=== PATIENT | female | born 1930 | race Caucasian/White ===

== ENCOUNTER 2016-06-03 16:01 | Emergency (ER) | payer MEDICARE | END 2016-06-03 17:44 | disposition home or self-care (01) | LOC: FER 16:01 | DX: I48.2 Chronic atrial fibrillation (principal); E03.9 Hypothyroidism, unspecified; Z79.01 Long term (current) use of anticoagulants; Z79.82 Long term (current) use of aspirin; Z79.899 Other long term (current) drug therapy; Z95.0 Presence of cardiac pacemaker; Z98.61 Coronary angioplasty status | CPT/HCPCS: 71020; 93005 ==

== ENCOUNTER 2016-06-25 12:01 | Day surgery (SDCO) | payer MEDICARE ==
[2016-06-25 12:22] LABS: BASOPHIL 0.8 % (0-2); EOSINOPHIL 3.8 % (0-7); HCT 43.9 % (37.0-47.0); HGB 13.8 g/dl (12.5-16.0); LYMPHOCYTE 18.2 % (15-48); MCH 31.9 pg (25.0-31.0); MCHC 31.4 g/dL (32.0-36.0); MCV 101.6 fL (78.0-100.0); MONOCYTE 12.5 % (0-12); MPV 10.3 fL (6.0-9.5); NEUTROPHIL 64.7 % (41-80); PLT 179 K/uL (150-400); RBC 4.32 M/uL (4.20-5.40); RDW 14.9 % (11.5-14.0)
[2016-06-25 12:42] LABS: INR 2.26 (0.9-1.2); PROTHROMBIN TIME 24.3 SECONDS (11.7-14.0); PTT 37.1 SECONDS (23.2-31.4)
[2016-06-25 12:44] LABS: BILIRUBIN NEGATIVE (NEGATIVE); BLOOD NEGATIVE Ery/uL (NEGATIVE); CLARITY CLEAR (CLEAR); COLOR YELLOW (YELLOW); GLUCOSE (U) NORMAL (NORMAL); KETONE (U) NEGATIVE (NEGATIVE); LEUKOCYTES 1+ Leu/uL (NEGATIVE); NITRITE NEGATIVE (NEGATIVE); PROTEIN NEGATIVE (NEGATIVE); UROBILINOGEN 0.2 mg/dL (0.2-1.0); pH 7.5 (5.0-9.0)
[2016-06-25 12:48] LABS: BACTERIA TRACE; URINARY RBC RARE
[2016-06-25 12:50] LABS: ALBUMIN 4.1 g/dL (3.4-4.8); BILIRUBIN - TOTAL 0.9 mg/dL (0.1-1.0); CREATININE 1.8 mg/dL (0.5-1.0); GLOBULIN (CALCULATION) 3.1 g/dL (2.2-4.2); MAGNESIUM 2.61 mg/dL (1.40-2.10); POTASSIUM 4.1 mmol/L (3.5-5.1); TOTAL PROTEIN 7.2 g/dL (6.4-8.3)
[2016-06-25 12:51] LABS: CKMB 1.93 ng/mL (0.97-4.94); TROPONIN T 0.013 ng/mL
[2016-06-25 19:07] LABS: CKMB 1.49 ng/mL (0.97-4.94); TROPONIN T < 0.010 ng/mL
[2016-06-26 02:00] LABS: CKMB 1.46 ng/mL (0.97-4.94); TROPONIN T < 0.010 ng/mL
[2016-06-26 04:54] LABS: BASOPHIL 0.8 % (0-2); EOSINOPHIL 4.2 % (0-7); HCT 39.9 % (37.0-47.0); HGB 12.6 g/dl (12.5-16.0); LYMPHOCYTE 25.8 % (15-48); MCH 32.3 pg (25.0-31.0); MCHC 31.6 g/dL (32.0-36.0); MCV 102.3 fL (78.0-100.0); MONOCYTE 12.5 % (0-12); MPV 10.4 fL (6.0-9.5); NEUTROPHIL 56.7 % (41-80); PLT 172 K/uL (150-400); RDW 14.9 % (11.5-14.0); WBC 5.2 K/uL (4.0-10.5)
[2016-06-26 05:11] LABS: CREATININE 1.7 mg/dL (0.5-1.0); POTASSIUM 4.4 mmol/L (3.5-5.1)
[2016-06-26] MEDS ORDERED: ALLOPURINOL100 MG PO (14:06)
[2016-06-26] MEDS ORDERED: MICRO-K10 MEQ PO (14:07)
[2016-06-26] MEDS ORDERED: COUMADIN 1MG TAB1 MG PO (14:07)
[2016-06-26] MEDS ORDERED: COUMADIN 2MG TAB2 MG PO (14:07)
[2016-06-26] MEDS ORDERED: ASPIRIN CHEWABL81 MG PO (14:07)
[2016-06-26] MEDS ORDERED: SYNTHROID112 MCG PO (14:08)
[2016-06-26] MEDS ORDERED: LOPRESSOR100 MG PO (14:08)
[2016-06-26] MEDS ORDERED: PROAIR HFA8.5 GM PO (14:08)
[2016-06-26] MEDS ORDERED: VICODIN 10/3251 EACH PO (14:09)
[2016-06-26] MEDS ORDERED: CALCITRIOL0.25 MCG PO (14:09)
[2016-06-26] MEDS ORDERED: BUMEX1 MG PO ×2 (14:09)
[2016-06-26] MEDS ORDERED: TRIAMCINOLONE 080 GM TOP (14:10)
[2016-06-26] MEDS ORDERED: CYANOCOBAL1000 MCG/1 IM (14:10)
[2016-06-26] MEDS ORDERED: PROTONIX 40MG T40 MG PO (14:11)
[2016-06-26] MEDS ORDERED: IMDUR 30MG TABL30 MG PO (14:11)
== END 2016-06-26 11:22 | disposition home or self-care (01) ==
LOC: FER 12:01 → FTCU 13:32
PROVIDERS: Emergency Medicine; ADMIT Internal Medicine
DX: R07.9 Chest pain, unspecified (principal); I25.10 Atherosclerotic heart disease of native coronary artery without angina pectoris; I50.9 Heart failure, unspecified; I48.0 Paroxysmal atrial fibrillation; E03.9 Hypothyroidism, unspecified; E78.00 Pure hypercholesterolemia, unspecified; N18.4 Chronic kidney disease, stage 4 (severe); M10.9 Gout, unspecified; K21.9 Gastro-esophageal reflux disease without esophagitis; J44.9 Chronic obstructive pulmonary disease, unspecified; Z95.5 Presence of coronary angioplasty implant and graft; Z95.0 Presence of cardiac pacemaker; Z82.49 Family history of ischemic heart disease and other diseases of the circulatory system; Z79.01 Long term (current) use of anticoagulants; Z79.82 Long term (current) use of aspirin; Z79.899 Other long term (current) drug therapy
CPT/HCPCS: 36415; 71010; 80048; 80053; 80061; 81001; 82550; 82553; 83735; 83874; 83880; 84484; 85025; 85610; 85730; 93005; 94010; G0378